=== PATIENT | male | born 1980 | race Caucasian/White ===

== ENCOUNTER 2022-08-03 12:23 | Emergency (ER) | payer BC ==
[2022-08-03 12:32] VITALS: BMI 32.9
[2022-08-03] MEDS ORDERED: KETOROLAC TROMETHAMINE 30 MG/1 ML VIAL IM ONE (14:49)
[2022-08-03] MEDS ORDERED: MECLIZINE HCL 25 MG TABLET (FP) PO ONE (14:49)
[2022-08-03] MEDS ORDERED: MECLIZINE HCL 25 MG TABLET (FP) ONE (15:31)
[2022-08-03] MEDS ORDERED: KETOROLAC TROMETHAMINE 30 MG/1 ML VIAL ONE (15:32)
[2022-08-03 16:23] VITALS: BP 128/77; PULSE 69; RESP 16; TEMP 98
[2022-08-03] MEDS ORDERED: ACETAMINOPHEN 325 MG TABLET (FP) PO ONE (17:20)
[2022-08-03] MEDS ORDERED: ACETAMINOPHEN 325 MG TABLET (FP) ONE (17:32)
== END 2022-08-03 18:00 | disposition home or self-care (01) ==
LOC: JER 12:23
PROC: 3E0233Z Introduction of Anti-inflammatory into Muscle, Percutaneous Approach (ICD-10-PCS; principal; 2022-08-03)
DX: M79.605 Pain in left leg (principal); R55 Syncope and collapse
CPT/HCPCS: 70450-TC; 93971-TC; 99284-25

== ENCOUNTER 2024-11-05 08:30 | Emergency (ER) | payer BC ==
[2024-11-05 08:37] VITALS: TEMP 98.2; BMI 34.7
[2024-11-05] MEDS: ALBUTEROL SO4 2.5/IPRATROPIUM 0.5 INH SOL 3 ML VIAL.NEB. NEB ONE (11:13)
[2024-11-05] MEDS: ALBUTEROL SO4 0.083% IH SOL 2.5 MG/3 ML VIAL.NEB. NEB ONE ×2 (11:14→12:28)
[2024-11-05] MEDS ORDERED: ALBUTEROL SO4 0.083% IH SOL 2.5 MG/3 ML VIAL.NEB. NEB ONE ×2 (11:14→12:24)
[2024-11-05 13:40] VITALS: BP 130/87; PULSE 82; RESP 17
== END 2024-11-05 13:40 | disposition home or self-care (01) ==
LOC: JER 08:30
PROC: 3E0F7GC Introduction of Other Therapeutic Substance into Respiratory Tract, Via Natural or Artificial Opening (ICD-10-PCS; principal; 2024-11-05)
PROC: 3E0F7GC Introduction of Other Therapeutic Substance into Respiratory Tract, Via Natural or Artificial Opening (ICD-10-PCS; 2024-11-05)
DX: R05.9 Cough, unspecified (principal); R09.81 Nasal congestion; R06.02 Shortness of breath; Z20.822 Contact with and (suspected) exposure to COVID-19
CPT/HCPCS: 0241U-QW; 71046-TC-FY; 99284-25